=== PATIENT | female | born 1995 | race Caucasian/White ===

== ENCOUNTER → 2019-01-17 | Outpatient (CLI) | payer BC | LOC: COL.RAD 11:41 | DX: K82.8 Other specified diseases of gallbladder (principal) | CPT/HCPCS: A9537; J2805 ==

== ENCOUNTER → 2019-11-13 | Outpatient (CLI) | payer BC | LOC: ZCOL.LAB 19:26 | DX: H92.11 Otorrhea, right ear (principal) ==